=== PATIENT | female | born 1945 | race Caucasian/White ===

== ENCOUNTER 2019-07-25 07:17 | Day surgery (SDC) | payer OTHER ==
[2019-07-22 14:13] LABS: Absolute Lymphocytes (CBC) 1.1 K/uL (0.7-4.9); Basophils % 0.3 % (0-1.3); Hematocrit 41.1 % (36.0-45.0); MPV 8.6 fL (7.6-11.3); RBC Red Blood Cell Count 4.59 M/uL (3.86-4.86)
[2019-07-22 14:17] LABS: Protime INR 0.97
[2019-07-22 14:26] LABS: Potassium 3.1 mmol/L (3.5-5.1)
--- NOTE | 2019-07-22 14:31 | RAD REPORT ---
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 FINDINGS: The lungs are fibrotic as a baseline. Diaphragm is flattened with increased retrosternal s pace. In the posterior mid left lung field a 6- 7 centimeter diameter mass density is present. Pneumo nadia would be a primary consideration if the patient has acute clinical symptoms. Otherwise, primary l cathy malignancy would be the diagnosis of exclusion. No other infiltrate or acute finding seen in the underlying COPD pattern. No failure or volume overlo ad. Heart size is normal and central vasculature is within normal limits. No pleural effusion or p neumothorax seen. Osteopenic and degenerative bony changes are present. There is slight wedging of s everal mid and upper thoracic vertebrae. No aortic dilatation. Prominent aortic calcifications are pr esent. Findings telephoned to Aliya 1420 hours IMPRESSION: Large 6-7 cm posterior mid left lung field mass density. Pneumonia and malignancy are briana th primary considerations. Correlation is needed with any exam or lab findings that may indicate pneumonia. Follow-up CT chest i maging is recommended. Prominent baseline COPD.
[~2019-07-25 07:17] MED LIST: HEPA 1000U/500MLS 2,000 UNIT/1,000 ML BAG IV ONE; LIDOCAINE 1% 20 ML MDV ONE
[2019-07-25] MEDS ORDERED: NA CHLORIDE 0.9% 500 ML ONE (07:31)
[2019-07-25] MEDS ORDERED: MIDAZOLAM HCL 2 MG/2 ML INJ ONE ×2 (08:02→08:18)
[2019-07-25] MEDS ORDERED: FLUMAZENIL 0.1 MG/ML (5 mL VIAL) IV ONE (08:02)
[2019-07-25] MEDS ORDERED: NALOXONE 0.4 MG/ML VIAL ONE (08:02)
[2019-07-25] MEDS ORDERED: FENTANYL CITR 100 MCG/2 ML ONE (08:02)
[2019-07-25] MEDS ORDERED: ATROPINE SULF 1 MG/10 ML SYR IV ONE (08:03)
[2019-07-25] MEDS ORDERED: METHYLPREDNISOLONE 125 MG INJ ONE (08:04)
[2019-07-25] MEDS ORDERED: HYDRALAZINE HCL 20 MG/ML VIAL ONE (08:18)
[2019-07-25] MEDS ORDERED: POTASSIUM 25 MEQ EFFERV TAB PO ONE (08:54)
--- NOTE | 2019-07-25 09:04 | OP ---
Surgeon: Torrey Scruggs MD Identifying Information: Ms. Sullivan is 73. Procedure: Attempted carotid angiogram. 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 We could not advance a wire beyond the iliac arteries. Angiography suggested both sides were occluded. There may be a patent graft material, but I was unable to angiogram the graft material so rather than attempt anything further today, I would recommend CT angiography of the carotids, aorta, and a CAT scan of the chest because of a newly discovered left-sided lung mass measuring 7 cm. The most likely diagnosis of that is cancer. Patient may not be a good candidate for any further vascular interventions. MANUEL/BLANCHE Voice ID: [id number] Report ID: [id number] SHAW
[2019-07-25 09:56] VITALS: TEMP 98.4
--- NOTE | 2019-07-25 10:28 | RAD REPORT ---
EXAM DESCRIPTION: CT - Thorax Wo Con CLINICAL HISTORY: Chest pain suspicious mass from chest x-ray COMPARISON: Chest Pa And Lat (2 Views) dated 07/22/2019; Chest Single View dated 07/30/2017 FINDINGS: Mild diffuse COPD is present. 6.0 x 5.6 cm soft tissue density pulmonary lesion is present without air bronchograms in the superior segment of the left lower lobe. Small spiculated nodular de nsity is present measuring 9 mm in the left upper lobe laterally (image 32/70). Small area of linear atelectasis is present in the left lung base. Trace left pleural fluid. No pneumothorax. No axillary, mediastinal or hilar adenopathy. No concerning bony finding. Bilateral renal stones are present. All CT scans are performed using dose optimization technique as appropriate and may include automated exposure control or mA/KV adjustment according to patient size. IMPRESSION: 6 cm soft tissue density pulmonary lesion in the superior segment left lower lobe medial ly without air bronchograms.The findings are concerning for malignancy and bronchoscopy may be consid ered.
--- NOTE | 2019-07-25 12:39 | P.CNS ---
Date of Consult: 07/25/19 Reason for Consult: Lung mass Chief Complaint: Lung mass History of Present Illness: Patient is 73 years of age a heavy smoker was admitted for a carotid angiogram was found to have a large lung mass patient has peripheral vascular disease and was admitted for an angiogram denies any pulmonary complaints does use bronchodilators at home and is compliant denies any chest pain fever or weight loss Allergies codeine Adverse Reaction (Verified 07/25/17 13:25) Itching/Hives/Rash Iodinated Contrast Media [Iodinated Contrast- Oral and IV Dye] Adverse Reaction (Verified 07/25/17 13:25) Itching morphine Adverse Reaction (Verified 07/25/17 13:24) Itching/Hives/Rash IV Contrast Allergy (Uncoded 07/25/17 14:02) Unknown Home Medications: Albuterol Sulfate [Proair Hfa] 1 puff IH Q4HP PRN 07/25/17 Aspirin [Aspirin EC 325 MG] 325 mg PO DAILY 07/25/17 Clopidogrel Bisulfate [Plavix*] 75 mg PO DAILY 07/25/17 Fluticasone/Salmeterol [Advair 250-50 Diskus] 1 puff IH BID 07/25/17 Isosorbide Mononitrate [Isosorbide Mononitrate ER] 60 mg PO DAILY 07/25/17 Lovastatin 10 mg PO BEDTIME 07/25/17 Metoprolol Tartrate [Lopressor*] 25 mg PO DAILY 07/25/17 Metoprolol Tartrate [Lopressor*] 50 mg PO BEDTIME 07/25/17 lisinopriL [Prinivil*] 20 mg PO DAILY 07/25/17 Levofloxacin [Levaquin] 500 mg PO DAILY #10 tablet 07/28/17 Pantoprazole Sodium [Protonix] 40 mg PO DAILY #30 tablet. 07/28/17 metroNIDAZOLE [Flagyl] 500 mg PO Q6H #40 tablet 07/28/17 - Past Medical/Surgical History Diabetic: No -: COPD -: HTN -: hyperlipidemia -: hysterectomy -: lynnette -: aortic bifemoral bypass - Family History Father Medical History: Cancer Mother Medical History: Other (see notes) Notes: alzheimers Sister Medical History: Heart disease - Social History Smoking Status: Current every day smoker Alcohol use: No CD- Drugs: No Caffeine use: Yes Review of Systems 10-point ROS is otherwise unremarkable Physical Examination Temp Pulse Resp BP Pulse Ox 98.4 F 64 16 162/68 H 07/25/19 10:40 07/25/19 10:40 07/25/19 10:40 07/25/19 10:40 General: Alert, Oriented x3 HEENT: Atraumatic Neck: Supple Respiratory: Clear to auscultation bilaterally, Diminished Cardiovascular: No edema, Regular rate/rhythm, Normal S1 S2 Gastrointestinal: Normal bowel sounds, Soft and benign - Problems (1) Lung cancer Current Visit: Yes Status: Acute Plan: Patient is 73 years of age evaluated for me for alert large left-sided lung mass amenable to bronchoscopy patient is a heavy smoker history of COPD was admitted here for for for vascular disease he is completely occluded iliac arteries. Discuss with the patient's the risk of bronchoscopy which include bleeding infection and lung collapse in patient agrees also instructed her to stop the Plavix 7 days prior to the procedure patient does not drive and call my office to schedule a date and she needs to stop the Plavix 7 days prior to that witnessed by the nurse and continue take aspirin labs are unremarkable apart from mild hypokalemia Qualifiers: Laterality: left
[2019-07-25 15:21] VITALS: BP 173/69; O2SAT 96
== END 2019-07-25 15:00 | disposition home or self-care (01) ==
LOC: CCL 07:17
PROVIDERS: ATTEND Internal Medicine
PROC: B305ZZZ Plain Radiography of Bilateral Common Carotid Arteries (ICD-10-PCS; principal; 2019-07-25)
DX: I65.23 Occlusion and stenosis of bilateral carotid arteries (principal); I70.213 Atherosclerosis of native arteries of extremities with intermittent claudication, bilateral legs; I70.92 Chronic total occlusion of artery of the extremities; I10 Essential (primary) hypertension; R91.8 Other nonspecific abnormal finding of lung field; E78.2 Mixed hyperlipidemia; J44.9 Chronic obstructive pulmonary disease, unspecified; Z79.82 Long term (current) use of aspirin; F17.210 Nicotine dependence, cigarettes, uncomplicated; Z90.49 Acquired absence of other specified parts of digestive tract; Z88.6 Allergy status to analgesic agent; Z91.041 Radiographic dye allergy status; Z80.9 Family history of malignant neoplasm, unspecified
CPT/HCPCS: 85025; 80048; 36415; 85610; 85730; 71250; 71046; 36222; C1893; J2250; J3010; J7040; J2930; J0360; J2310

== ENCOUNTER 2019-08-10 06:57 | Day surgery (SDC) | payer OTHER ==
[2019-08-10] MEDS ORDERED: Ringers Lactate 1,000 ML IV ONE (07:07)
[2019-08-10] MEDS ORDERED: GLYCOPYRROLATE 0.2 MG/ML SYR ONE (07:07)
[2019-08-10] MEDS ORDERED: Phenylephrine HCl 10 MG/ML 1 ML VIAL ONE ×2 (07:10→08:19)
[2019-08-10] MEDS ORDERED: ALBUTEROL 2.5 MG/3 ML NEB SOL ONE (07:41)
[2019-08-10] MEDS ORDERED: LIDOCAINE 1% MPF 30 ML VIAL ONE (07:46)
[2019-08-10] MEDS ORDERED: LIDOCAINE VISCOUS 2% SOLN 15 ML UDC ONE (07:46)
[2019-08-10] MEDS ORDERED: NS 0.9% VIAL 0 ML ONE (08:19)
[2019-08-10] MEDS ORDERED: propofoL 200 MG/20 ML VIAL IV ONE ×2 (08:19)
[2019-08-10] MEDS ORDERED: LIDOCAINE 1% MPF 5 ML VIAL ONE (08:19)
--- NOTE | 2019-08-10 08:42 | P.OP ---
Date of Service: 08/10/19 (Bronchoscopy with left upper lobe biopsies BAL) Findings and Operative Technique Patient is 73 years of age a history of tobacco abuse admitted with mild left upper lobe lung mass hence the reason for bronchoscopy Narrative report after obtaining informed consent from the patient she was premedicated by anesthesia Findings normal vocal cord normal trachea normal greer normal right and left- sided bronchial anatomy the bleeding was visible from the superior segment of the left lobe /multiple biopsies were obtained in the left upper lobe no mass visualized patient tolerated the procedure very well postoperatively chest x- ray has been obtained
[2019-08-10 09:16] VITALS: TEMP 99
[2019-08-10 09:17] VITALS: BP 135/57; O2SAT 100
--- NOTE | 2019-08-10 10:25 | RAD REPORT ---
EXAM DESCRIPTION: RAD - Chest Single View - 08/10/2019 10:00 am CLINICAL HISTORY: S/P BRONCHOSCOPY, R/O PNUEMOTHORAX Chest pain. COMPARISON: Chest Pa And Lat (2 Views) dated 07/22/2019; Chest Single View dated 07/30/2017; Chest Sing le View dated 07/25/2017; Chest Pa And Lat (2 Views) dated 10/29/2016 FINDINGS: Portable technique limits examination quality. Left hilar mass is present. Diffuse COPD is noted without postprocedure pneumothorax. The heart is no rmal in size. No displaced fractures. IMPRESSION: No postprocedure pneumothorax.
--- NOTE | 2019-08-10 13:21 | RAD REPORT ---
EXAM DESCRIPTION: RAD - FLUORO-GUIDE FOR BRONCH UPT1HR - 08/10/2019 1:16 pm CLINICAL HISTORY: BRONCH WITH DR. UPTON COMPARISON: No comparisons FINDINGS: Fluoroscopy time 5.4 minutes.
== END 2019-08-10 10:40 | disposition home or self-care (01) ==
LOC: OR 06:57
PROVIDERS: ATTEND Internal Medicine Sleep Medicine
PROC: 0B9G8ZX Drainage of Left Upper Lung Lobe, Via Natural or Artificial Opening Endoscopic, Diagnostic (ICD-10-PCS; 2019-08-10)
PROC: 0BB88ZX Excision of Left Upper Lobe Bronchus, Via Natural or Artificial Opening Endoscopic, Diagnostic (ICD-10-PCS; principal; 2019-08-10 08:00)
DX: R91.8 Other nonspecific abnormal finding of lung field (principal); J44.9 Chronic obstructive pulmonary disease, unspecified; I10 Essential (primary) hypertension; I25.10 Atherosclerotic heart disease of native coronary artery without angina pectoris; Z87.891 Personal history of nicotine dependence; Z86.73 Personal history of transient ischemic attack (TIA), and cerebral infarction without residual deficits; Z88.6 Allergy status to analgesic agent
CPT/HCPCS: 87070; 88108 ×2; 87184; 88305 ×2; 87015; 87206; 87116; 71045; 76000; 31625; 31624; J2704; J2370; J7120